=== PATIENT | female | born 1995 ===

== ENCOUNTER 2022-06-01 09:54 | Emergency (ER) | payer SELFPAY ==
[~2022-06-01] VITALS: Ht 165.1 cm; Wt 73.5 kg
[2022-06-01 11:08] LABS: Influenza A, PCR NEGATIVE (NEGATIVE); Influenza B, PCR NEGATIVE (NEGATIVE); Resp Syncytial Virus, PCR NEGATIVE (NEGATIVE); SARS-Cov-2 (COVID-19) PCR, MMC NEGATIVE (NEGATIVE)
[2022-06-01] MEDS ORDERED: AMOCLA875 PO (13:07)
[2022-06-01] MEDS ORDERED: ONDA4ODT MM (13:07)
== END 2022-06-01 13:17 | disposition home or self-care (01) ==
LOC: ER 09:54
PROVIDERS: Physician Assistant
DX: J02.9 Acute pharyngitis, unspecified (principal); Z88.6 Allergy status to analgesic agent; Z20.822 Contact with and (suspected) exposure to COVID-19
CPT/HCPCS: 0241U; 71045; A9270

== ENCOUNTER 2022-08-23 18:38 | Emergency (ER) | payer SELFPAY ==
[~2022-08-23 18:38] MED LIST: AMOCLA875 PO; ONDA4ODT MM
[2022-08-24] MEDS ORDERED: Tylenol W/Code120 ML PO (13:58)
== END 2022-08-23 23:18 | disposition left against medical advice (07) ==
DX: R50.9 Fever, unspecified (principal); J02.9 Acute pharyngitis, unspecified; Z53.21 Procedure and treatment not carried out due to patient leaving prior to being seen by health care provider

== ENCOUNTER 2022-08-24 09:26 | Emergency (ER) | payer SELFPAY ==
[2022-08-24] MEDS ORDERED: Tylenol W/Code120 ML PO (13:58)
== END 2022-08-24 14:22 | disposition home or self-care (01) ==
DX: J02.8 Acute pharyngitis due to other specified organisms (principal); Z88.6 Allergy status to analgesic agent; Z20.822 Contact with and (suspected) exposure to COVID-19